=== PATIENT | male | born 1945 | race Caucasian/White ===

== ENCOUNTER 2018-10-30 09:57 | Inpatient (IN) | payer MEDICARE, OTHER ==
[~2018-10-30] VITALS: Ht 185.4 cm; Wt 141.0 kg
[~2018-10-30 09:57] MED LIST: ACET-2119 PO; ALLO300T2 PO; AMOX500T2 PO; COU4T PO; ERGO500014 PO; FURO-150 PO; GABA-532 PO; GEMF600T PO; GEMF600T4 PO; HYDR-4353 PO; HYDR25TA4 PO; LACT1CAP65 PO; LINE600T36 PO; LISI-600 PO; LISI-644 PO; LOSA50TA21 PO; METF-437 PO; METF-951 PO; METO25TA6 PO; MULT1TAB74 PO; OMEG1CAP2 PO; PRAV20TA4 PO; SIMV40TA PO; TEMA15CA5 PO; WARF3TAB56 PO; WARF4TAB69 PO
[2018-10-30 10:21] LABS: BASOPHILS % (AUTO) 0.7 % (0-1); EOSINOPHILS # (AUTO) 0.2 X10'3 (0-0.9); EOSINOPHILS % (AUTO) 3.5 % (0-6); HEMOGLOBIN 13.4 g/dl (14.0-17.9); LYMPHOCYTES # (AUTO) 0.5 X10'3 (1.1-4.8); LYMPHOCYTES % (AUTO) 10.3 % (21-51); MEAN CORPUSCULAR HGB CONC 32.7 % (33.0-36.5); MEAN CORPUSCULAR VOLUME 94.7 FL (78-98); MEAN PLATELET VOLUME 8.2 FL (7.4-10.4); MONOCYTES # (AUTO) 0.2 X10'3 (0-0.9); MONOCYTES % (AUTO) 4.3 % (2-12); NEUTROPHILS # (AUTO) 3.8 X10'3 (1.8-7.7); NEUTROPHILS % (AUTO) 81.2 % (42-75); PLATELET COUNT 159 X10'3 (140-440); RED BLOOD COUNT 4.33 X10'6 (4.70-6.10); RED CELL DISTRIBUTION WIDTH 15.2 % (11.5-14.5); WHITE BLOOD COUNT 4.7 X10'3 (4.5-11.0)
[2018-10-30] MEDS ORDERED: furosemide 10 MG/1 ML 10ml inj IV ONE (10:35)
[2018-10-30 10:36] LABS: ALANINE AMINOTRANSFERASE 26 U/L (12-78); ALBUMIN 3.6 G/DL (3.4-5.0); ALKALINE PHOSPHATASE 109 IU/L (46-116); ANION GAP 10 (8-16); ASPARTATE AMINO TRANSFERASE 25 U/L (10-37); BLOOD UREA NITROGEN 35 MG/DL (7-18); BUN/CREATININE RATIO 21.6 (5.4-32.0); CHLORIDE 109 MMOL/L (99-107); CREATININE 1.62 MG/DL (0.60-1.10); GLUCOSE 125 MG/DL (70-104); POTASSIUM 5.2 MMOL/L (3.5-5.1); SODIUM 143 MMOL/L (135-145); TOTAL CARBON DIOXIDE 23.6 MMOL/L (24-32); TOTAL PROTEIN 7.2 G/DL (6.4-8.2); eGFR 42 ML/MIN
[2018-10-30 10:50] LABS: INR 2.7 INR; PARTIAL THROMBOPLASTIN TIME 40 SECONDS (22-32); PROTHROMBIN TIME 25.6 SECONDS (9.0-12.0)
[2018-10-30] MEDS ORDERED: LISI-604 PO (11:56)
[2018-10-30] MEDS ORDERED: METO50TA16 PO (11:56)
[2018-10-30] MEDS ORDERED: GABA-532 PO (11:56)
[2018-10-30] MEDS ORDERED: ALLO100T PO (11:56)
[2018-10-30] MEDS ORDERED: HYDR12.55 PO (11:56)
[2018-10-30] MEDS ORDERED: ATOR40TA72 PO (11:56)
[2018-10-30] MEDS ORDERED: NIFE30TA95 PO (11:56)
[2018-10-30] MEDS ORDERED: COU5T PO (11:56)
[2018-10-30] MEDS ORDERED: PHYT100T PO (11:57)
[2018-10-30] MEDS ORDERED: magnesium hydroxide 30ml (MOM) UD suspension PO PRN (12:00)
[2018-10-30] MEDS ORDERED: acetaminophen 325mg tablet PO PRN (12:00)
[2018-10-30] MEDS ORDERED: mag hydrox/Alum hydrox/simeth 30ml oral suspension PO PRN (12:00)
[2018-10-30] MEDS ORDERED: magnesium Cl slow-release 64mg tablet PO PRN (12:00)
[2018-10-30] MEDS ORDERED: potassium Cl 20 mEq SR tablet PO PRN ×2 (12:00)
[2018-10-30] MEDS ORDERED: potassium Cl 40MEQ/NS 500ml 500 ML IV PRN ×2 (12:00)
[2018-10-30] MEDS ORDERED: ondansetron/PF 4mg/2ml inj IV PRN (12:00)
[2018-10-30] MEDS ORDERED: magnesium 4gm in 100ml NS 100 ML IV PRN (12:00)
[2018-10-30] MEDS ORDERED: azithromycin/NS 500mg/250ml 250 ML IV ONE (12:05)
[2018-10-30] MEDS ORDERED: insulin Lispro (HumaLOG) vial - multi-dose SQ SCH (13:05)
[2018-10-30] MEDS ORDERED: glucagon, human recombinant 1mg kit SUBCUT PRN (13:05)
[2018-10-30] MEDS ORDERED: dextrose 50%-water 50ml dispensing syringe IV PRN ×2 (13:05)
[2018-10-30] MEDS ORDERED: dextrose ORAL solution 15 GM/59 ML bottle PO PRN ×2 (13:05)
[2018-10-30] MEDS ORDERED: MESSAGE TO PHARMACY PO ONE (13:05)
[2018-10-30] MEDS: gabapentin 300mg capsule PO SCH ×3 (13:53→20:19)
[2018-10-30 14:05] VITALS: BP 165/78
[2018-10-30] MEDS: CefTRIAXone/D5W-Rocephin 1gm 50 ML IV SCH (14:05)
[2018-10-30 15:00] VITALS: BP 166/73
[2018-10-30 15:52] LABS: POTASSIUM 5.4 MMOL/L (3.5-5.1)
[2018-10-30] MEDS ORDERED: sodium polystyrene sulfonate 15gm/60ml oral suspension PO ONE (16:35)
[2018-10-30 19:00] VITALS: BP 172/74
[2018-10-30] MEDS ORDERED: heparin, porcine 5000 units/ml vial SQ SCH (20:00)
[2018-10-30] MEDS: furosemide 40mg/4ml inj IV SCH (20:19)
[2018-10-30] MEDS: allopurinol 100mg tablet PO SCH (20:19)
[2018-10-30] MEDS: insulin glargine (Lantus) pen - multi-dose SQ SCH (21:00)
[2018-10-30] MEDS ORDERED: NIFEdipine XL 30mg tablet PO SCH (21:00)
[2018-10-30] MEDS ORDERED: warfarin 4mg tablet PO ONE (21:00)
[2018-10-30 23:00] VITALS: BP 166/68
[2018-10-31 03:00] VITALS: BP 156/74
[2018-10-31 06:00] VITALS: BP 171/78
[2018-10-31 06:11] LABS: HEMATOCRIT 37.5 % (42.0-52.0); HEMOGLOBIN 12.9 g/dl (14.0-17.9); INR 2.8 INR; MEAN CORPUSCULAR HGB CONC 34.4 % (33.0-36.5); MEAN PLATELET VOLUME 9.2 FL (7.4-10.4); PLATELET COUNT 141 X10'3 (140-440); PROTHROMBIN TIME 27.3 SECONDS (9.0-12.0); RED BLOOD COUNT 4.03 X10'6 (4.70-6.10); RED CELL DISTRIBUTION WIDTH 13.9 % (11.5-14.5); WHITE BLOOD COUNT 4.8 X10'3 (4.5-11.0)
[2018-10-31 06:13] LABS: BASOPHILS % (AUTO) 0.7 % (0-1); EOSINOPHILS # (AUTO) 0.2 X10'3 (0-0.9); EOSINOPHILS % (AUTO) 3.3 % (0-6); LYMPHOCYTES # (AUTO) 0.4 X10'3 (1.1-4.8); LYMPHOCYTES % (AUTO) 7.8 % (21-51); MONOCYTES # (AUTO) 0.3 X10'3 (0-0.9); MONOCYTES % (AUTO) 6.3 % (2-12); NEUTROPHILS # (AUTO) 3.9 X10'3 (1.8-7.7); NEUTROPHILS % (AUTO) 81.9 % (42-75)
[2018-10-31 06:30] LABS: ALANINE AMINOTRANSFERASE 23 U/L (12-78); ALBUMIN 3.4 G/DL (3.4-5.0); ALKALINE PHOSPHATASE 99 IU/L (46-116); ANION GAP 12 (8-16); ASPARTATE AMINO TRANSFERASE 18 U/L (10-37); BILIRUBIN,TOTAL 0.9 MG/DL (0.1-1.0); BLOOD UREA NITROGEN 35 MG/DL (7-18); BUN/CREATININE RATIO 20.8 (5.4-32.0); CALCIUM 7.7 MG/DL (8.5-10.1); CHLORIDE 107 MMOL/L (99-107); CREATININE 1.68 MG/DL (0.60-1.10); GLUCOSE 105 MG/DL (70-104); MAGNESIUM 1.6 MG/DL (1.5-2.4); POTASSIUM 5.1 MMOL/L (3.5-5.1); SODIUM 143 MMOL/L (135-145); TOTAL PROTEIN 6.9 G/DL (6.4-8.2); eGFR 40 ML/MIN
[2018-10-31] MEDS: atorvastatin 20mg tablet PO SCH (07:17)
[2018-10-31] MEDS: furosemide 40mg/4ml inj IV SCH ×2 (07:18→20:40)
[2018-10-31] MEDS: allopurinol 100mg tablet PO SCH ×2 (07:18→20:40)
[2018-10-31] MEDS: metoprolol tartrate 50mg tablet PO SCH (07:18)
[2018-10-31] MEDS: gabapentin 300mg capsule PO SCH ×4 (07:19→20:41)
[2018-10-31] MEDS: CefTRIAXone/D5W-Rocephin 1gm 50 ML IV SCH (07:19)
[2018-10-31] MEDS ORDERED: lisinopril 5mg tablet PO SCH (08:00)
[2018-10-31] MEDS: K and/or MAG REPLACEMENT MC SCH (08:00)
[2018-10-31] MEDS ORDERED: amLODIPine 5mg tablet PO SCH (08:00)
[2018-10-31] MEDS: levoFLOXACIN-Levaquin 750MG/D5 150 ML IV SCH (10:48)
[2018-10-31 11:00] VITALS: BP 162/74
[2018-10-31 15:00] VITALS: BP 164/78
[2018-10-31] MEDS ORDERED: ipratropium/albuterol 3ml nebule NEB PRN (17:40)
[2018-10-31 19:00] VITALS: BP 156/74
[2018-10-31] MEDS: insulin glargine (Lantus) pen - multi-dose SQ SCH (20:41)
[2018-10-31] MEDS ORDERED: warfarin 5mg tablet PO SCH (21:00)
[2018-10-31] MEDS ORDERED: NIFEdipine XL 30mg tablet PO SCH (21:00)
[2018-10-31] MEDS ORDERED: warfarin 3mg tablet PO ONE (21:00)
[2018-10-31 23:00] VITALS: BP 159/71
[2018-11-01 03:00] VITALS: BP 141/64
[2018-11-01 05:56] LABS: BASOPHILS % (AUTO) 0.5 % (0-1); EOSINOPHILS # (AUTO) 0.2 X10'3 (0-0.9); EOSINOPHILS % (AUTO) 4.1 % (0-6); HEMATOCRIT 38.9 % (42.0-52.0); LYMPHOCYTES # (AUTO) 0.4 X10'3 (1.1-4.8); LYMPHOCYTES % (AUTO) 9.9 % (21-51); MEAN CORPUSCULAR HEMOGLOBIN 31.2 PG (27.0-31.0); MEAN CORPUSCULAR HGB CONC 33.3 % (33.0-36.5); MEAN CORPUSCULAR VOLUME 93.7 FL (78-98); MEAN PLATELET VOLUME 9.2 FL (7.4-10.4); MONOCYTES # (AUTO) 0.3 X10'3 (0-0.9); MONOCYTES % (AUTO) 7.8 % (2-12); NEUTROPHILS # (AUTO) 3.2 X10'3 (1.8-7.7); NEUTROPHILS % (AUTO) 77.7 % (42-75); PLATELET COUNT 140 X10'3 (140-440); RED BLOOD COUNT 4.15 X10'6 (4.70-6.10); RED CELL DISTRIBUTION WIDTH 14.7 % (11.5-14.5); WHITE BLOOD COUNT 4.2 X10'3 (4.5-11.0)
[2018-11-01 06:00] VITALS: BP 142/70
[2018-11-01 06:06] LABS: ALANINE AMINOTRANSFERASE 19 U/L (12-78); ALBUMIN 3.2 G/DL (3.4-5.0); ALBUMIN/GLOBULIN RATIO 0.9 (1.1-1.5); ALKALINE PHOSPHATASE 89 IU/L (46-116); ANION GAP 12 (8-16); ASPARTATE AMINO TRANSFERASE 16 U/L (10-37); BILIRUBIN,TOTAL 0.9 MG/DL (0.1-1.0); BLOOD UREA NITROGEN 41 MG/DL (7-18); BUN/CREATININE RATIO 24.1 (5.4-32.0); CALCIUM 7.9 MG/DL (8.5-10.1); CHLORIDE 104 MMOL/L (99-107); GLUCOSE 103 MG/DL (70-104); MAGNESIUM 1.5 MG/DL (1.5-2.4); POTASSIUM 4.9 MMOL/L (3.5-5.1); SODIUM 141 MMOL/L (135-145); TOTAL CARBON DIOXIDE 25.4 MMOL/L (24-32); TOTAL PROTEIN 6.7 G/DL (6.4-8.2); eGFR 40 ML/MIN
[2018-11-01 06:18] LABS: INR 2.9 INR; PROTHROMBIN TIME 27.7 SECONDS (9.0-12.0)
[2018-11-01] MEDS: furosemide 40mg/4ml inj IV SCH (07:11)
[2018-11-01] MEDS: levoFLOXACIN-Levaquin 750MG/D5 150 ML IV SCH (07:12)
[2018-11-01] MEDS: atorvastatin 20mg tablet PO SCH (07:12)
[2018-11-01] MEDS: metoprolol tartrate 50mg tablet PO SCH (07:13)
[2018-11-01] MEDS: gabapentin 300mg capsule PO SCH (07:24)
[2018-11-01] MEDS: allopurinol 100mg tablet PO SCH (07:25)
[2018-11-01] MEDS: K and/or MAG REPLACEMENT MC SCH (08:00)
[2018-11-01] MEDS ORDERED: lisinopril 5mg tablet PO SCH (08:00)
[2018-11-01 11:00] VITALS: BP 136/68
[2018-11-01] MEDS ORDERED: PRO30XLT PO (13:08)
[2018-11-01] MEDS ORDERED: LEVO750T46 PO (13:09)
[2018-11-01] MEDS ORDERED: FURO-150 PO (16:23)
[2018-11-01] MEDS ORDERED: warfarin 1mg tablet PO ONE (21:00)
== END 2018-11-01 16:20 | disposition home health service (06) | DRG 189 ==
LOC: ER 09:57 → ED HOLD 11:57 → MERGE 11:57 → PCU 3S 14:22
PROVIDERS: ADMIT Internal Medicine; ATTEND Family Medicine
DX: J96.01 Acute respiratory failure with hypoxia (principal); J18.9 Pneumonia, unspecified organism; I50.33 Acute on chronic diastolic (congestive) heart failure; I13.0 Hypertensive heart and chronic kidney disease with heart failure and stage 1 through stage 4 chronic kidney disease, or unspecified chronic kidney disease; J98.11 Atelectasis; N18.9 Chronic kidney disease, unspecified; E11.21 Type 2 diabetes mellitus with diabetic nephropathy; M10.9 Gout, unspecified; E11.22 Type 2 diabetes mellitus with diabetic chronic kidney disease; E78.5 Hyperlipidemia, unspecified; E87.5 Hyperkalemia; I25.10 Atherosclerotic heart disease of native coronary artery without angina pectoris; Z89.512 Acquired absence of left leg below knee; Z95.1 Presence of aortocoronary bypass graft; Z88.2 Allergy status to sulfonamides; Z79.899 Other long term (current) drug therapy; Z79.01 Long term (current) use of anticoagulants; Z86.718 Personal history of other venous thrombosis and embolism
CPT/HCPCS: 36415; 71045; 80053; 82948; 83036; 83735; 83880; 84132; 84484; 85025; 85610; 85730; 87040; 87070; 93005; 93306; 94760; 96374; 99285; G0378; J0456; J0696; J1815; J1940; J1956

== ENCOUNTER 2020-07-20 08:40 | Outpatient (CLI) | payer MEDICARE, OTHER ==
[~2020-07-20 08:40] MED LIST changes: -ACET-2119 PO; +ALLO100T PO; +ATOR40TA72 PO; -COU4T PO; -GEMF600T4 PO; +GEMF600T89 PO; +HYDR12.55 PO; -LACT1CAP65 PO; -LINE600T36 PO; +LISI-604 PO; -LOSA50TA21 PO; +LOSA50TA64 PO; -METF-951 PO; +METO50TA16 PO; +MULT-620 PO; -MULT1TAB74 PO; +PHYT100T PO; -PRAV20TA4 PO; +PRO30XLT PO; +WARF-113 PO
[2020-07-20 13:04] LABS: BASOPHILS % (AUTO) 0.5 % (0-1); EOSINOPHILS # (AUTO) 0.2 X10'3 (0-0.9); EOSINOPHILS % (AUTO) 3.7 % (0-6); HEMATOCRIT 38.2 % (42.0-52.0); HEMOGLOBIN 12.5 g/dl (14.0-17.9); LYMPHOCYTES # (AUTO) 0.4 X10'3 (1.1-4.8); LYMPHOCYTES % (AUTO) 7.1 % (21-51); MEAN CORPUSCULAR HEMOGLOBIN 30.5 PG (27.0-31.0); MEAN CORPUSCULAR HGB CONC 32.6 g/dL (33.0-36.5); MEAN CORPUSCULAR VOLUME 93.6 FL (78-98); MEAN PLATELET VOLUME 8.1 FL (7.4-10.4); MONOCYTES # (AUTO) 0.3 X10'3 (0-0.9); MONOCYTES % (AUTO) 5.4 % (2-12); NEUTROPHILS # (AUTO) 4.7 X10'3 (1.8-7.7); NEUTROPHILS % (AUTO) 83.3 % (42-75); PLATELET COUNT 177 X10'3 (140-440); RED BLOOD COUNT 4.08 X10'6 (4.70-6.10); RED CELL DISTRIBUTION WIDTH 16.2 % (11.5-14.5); WHITE BLOOD COUNT 5.6 X10'3 (4.5-11.0)
[2020-07-20 13:12] LABS: ALANINE AMINOTRANSFERASE 15 U/L (12-78); ALBUMIN 3.1 G/DL (3.4-5.0); ALBUMIN/GLOBULIN RATIO 0.8 (1.1-1.5); ALKALINE PHOSPHATASE 73 IU/L (46-116); ANION GAP 8 (8-16); ASPARTATE AMINO TRANSFERASE 15 U/L (10-37); BILIRUBIN,TOTAL 0.7 MG/DL (0.1-1.0); BLOOD UREA NITROGEN 60 MG/DL (7-18); BUN/CREATININE RATIO 31.9 (5.4-32.0); C-REACTIVE PROTEIN 2.99 MG/DL (0.0-0.5); CALCIUM 7.6 MG/DL (8.5-10.1); CHLORIDE 106 MMOL/L (99-107); CREATININE 1.88 MG/DL (0.60-1.10); GLUCOSE 115 MG/DL (70-104); POTASSIUM 5.3 MMOL/L (3.5-5.1); SODIUM 140 MMOL/L (135-145); eGFR 35 ML/MIN
== END 2020-07-20 12:25 | disposition home or self-care (01) ==
LOC: EDSTATUS 08:40 → WOUND CARE 08:40
PROVIDERS: ATTEND Nurse Practitioner
DX: Q82.0 Hereditary lymphedema (principal); I48.91 Unspecified atrial fibrillation; E78.5 Hyperlipidemia, unspecified; M10.9 Gout, unspecified; M19.90 Unspecified osteoarthritis, unspecified site; I25.10 Atherosclerotic heart disease of native coronary artery without angina pectoris; E11.21 Type 2 diabetes mellitus with diabetic nephropathy; E11.22 Type 2 diabetes mellitus with diabetic chronic kidney disease; I13.0 Hypertensive heart and chronic kidney disease with heart failure and stage 1 through stage 4 chronic kidney disease, or unspecified chronic kidney disease; I50.33 Acute on chronic diastolic (congestive) heart failure; N18.9 Chronic kidney disease, unspecified; F03.90 Unspecified dementia, unspecified severity, without behavioral disturbance, psychotic disturbance, mood disturbance, and anxiety; Z95.1 Presence of aortocoronary bypass graft; Z89.512 Acquired absence of left leg below knee; Z86.718 Personal history of other venous thrombosis and embolism; Z79.899 Other long term (current) drug therapy; Z79.01 Long term (current) use of anticoagulants
CPT/HCPCS: 29581; 36415; 80053; 83036; 85025; 85651; 86140

== ENCOUNTER 2020-07-28 08:15 | Outpatient (CLI) | payer MEDICARE, OTHER | END 2020-07-28 09:08 | disposition home or self-care (01) | LOC: WOUND CARE 08:15 → EDSTATUS 08:20 → WOUND CARE 09:08 | PROVIDERS: ATTEND Nurse Practitioner | DX: E11.621 Type 2 diabetes mellitus with foot ulcer (principal); L97.511 Non-pressure chronic ulcer of other part of right foot limited to breakdown of skin; E11.622 Type 2 diabetes mellitus with other skin ulcer; L97.811 Non-pressure chronic ulcer of other part of right lower leg limited to breakdown of skin; S81.811A Laceration without foreign body, right lower leg, initial encounter; I25.10 Atherosclerotic heart disease of native coronary artery without angina pectoris; E11.21 Type 2 diabetes mellitus with diabetic nephropathy; E11.22 Type 2 diabetes mellitus with diabetic chronic kidney disease; I13.0 Hypertensive heart and chronic kidney disease with heart failure and stage 1 through stage 4 chronic kidney disease, or unspecified chronic kidney disease; I50.33 Acute on chronic diastolic (congestive) heart failure; N18.3 Chronic kidney disease, stage 3 (moderate); Q32.0 Congenital tracheomalacia; I48.91 Unspecified atrial fibrillation; E78.5 Hyperlipidemia, unspecified; M10.9 Gout, unspecified; M19.90 Unspecified osteoarthritis, unspecified site; F03.90 Unspecified dementia, unspecified severity, without behavioral disturbance, psychotic disturbance, mood disturbance, and anxiety; Z95.1 Presence of aortocoronary bypass graft; Z89.512 Acquired absence of left leg below knee; Z86.718 Personal history of other venous thrombosis and embolism; Z79.899 Other long term (current) drug therapy; Z79.01 Long term (current) use of anticoagulants; X58.XXXA Exposure to other specified factors, initial encounter; Y93.89 Activity, other specified; Y92.89 Other specified places as the place of occurrence of the external cause; Y99.8 Other external cause status | CPT/HCPCS: 36416; 82948; 97597 ==

== ENCOUNTER 2020-08-03 08:05 | Day surgery (SDC) | payer MEDICARE, OTHER | END 2020-08-03 09:45 | disposition home or self-care (01) | LOC: WOUND CARE 08:05 | PROVIDERS: ATTEND Nurse Practitioner Family | DX: S91.111D Laceration without foreign body of right great toe without damage to nail, subsequent encounter (principal); S81.801D Unspecified open wound, right lower leg, subsequent encounter; Q82.0 Hereditary lymphedema; I25.10 Atherosclerotic heart disease of native coronary artery without angina pectoris; E11.21 Type 2 diabetes mellitus with diabetic nephropathy; E11.22 Type 2 diabetes mellitus with diabetic chronic kidney disease; I13.0 Hypertensive heart and chronic kidney disease with heart failure and stage 1 through stage 4 chronic kidney disease, or unspecified chronic kidney disease; N18.3 Chronic kidney disease, stage 3 (moderate); I50.33 Acute on chronic diastolic (congestive) heart failure; Q32.0 Congenital tracheomalacia; I48.91 Unspecified atrial fibrillation; E78.5 Hyperlipidemia, unspecified; M10.9 Gout, unspecified; M19.90 Unspecified osteoarthritis, unspecified site; F03.90 Unspecified dementia, unspecified severity, without behavioral disturbance, psychotic disturbance, mood disturbance, and anxiety; Z95.1 Presence of aortocoronary bypass graft; Z89.512 Acquired absence of left leg below knee; Z86.718 Personal history of other venous thrombosis and embolism; Z79.899 Other long term (current) drug therapy; Z79.01 Long term (current) use of anticoagulants; X58.XXXD Exposure to other specified factors, subsequent encounter | CPT/HCPCS: 36416; 82948; 97597; 97598 ==

== ENCOUNTER 2020-08-10 08:05 | Day surgery (SDC) | payer MEDICARE, OTHER ==
[2020-08-10] MEDS ORDERED: LIDOcaine 2% 5ml jelly ONE (08:34)
== END 2020-08-10 09:17 | disposition home or self-care (01) ==
LOC: WOUND CARE 08:05
PROVIDERS: ATTEND Nurse Practitioner Family
DX: E11.622 Type 2 diabetes mellitus with other skin ulcer (principal); L97.811 Non-pressure chronic ulcer of other part of right lower leg limited to breakdown of skin; S91.111D Laceration without foreign body of right great toe without damage to nail, subsequent encounter; E11.621 Type 2 diabetes mellitus with foot ulcer; L97.511 Non-pressure chronic ulcer of other part of right foot limited to breakdown of skin; I25.10 Atherosclerotic heart disease of native coronary artery without angina pectoris; E11.21 Type 2 diabetes mellitus with diabetic nephropathy; E11.22 Type 2 diabetes mellitus with diabetic chronic kidney disease; I13.0 Hypertensive heart and chronic kidney disease with heart failure and stage 1 through stage 4 chronic kidney disease, or unspecified chronic kidney disease; I50.33 Acute on chronic diastolic (congestive) heart failure; N18.3 Chronic kidney disease, stage 3 (moderate); Q32.0 Congenital tracheomalacia; Q82.0 Hereditary lymphedema; I48.91 Unspecified atrial fibrillation; E78.5 Hyperlipidemia, unspecified; M10.9 Gout, unspecified; M19.90 Unspecified osteoarthritis, unspecified site; F03.90 Unspecified dementia, unspecified severity, without behavioral disturbance, psychotic disturbance, mood disturbance, and anxiety; Z95.1 Presence of aortocoronary bypass graft; Z89.512 Acquired absence of left leg below knee; Z86.718 Personal history of other venous thrombosis and embolism; Z79.899 Other long term (current) drug therapy; Z79.01 Long term (current) use of anticoagulants; X58.XXXD Exposure to other specified factors, subsequent encounter
CPT/HCPCS: 36416; 82948; 97597

== ENCOUNTER 2020-08-17 08:00 | Outpatient (CLI) | payer MEDICARE, OTHER | END 2020-08-17 09:55 | disposition home or self-care (01) | LOC: EDSTATUS 08:00 → WOUND CARE 08:00 | PROVIDERS: ATTEND Nurse Practitioner Family | DX: E11.622 Type 2 diabetes mellitus with other skin ulcer (principal); L97.811 Non-pressure chronic ulcer of other part of right lower leg limited to breakdown of skin; I25.10 Atherosclerotic heart disease of native coronary artery without angina pectoris; E11.21 Type 2 diabetes mellitus with diabetic nephropathy; E11.22 Type 2 diabetes mellitus with diabetic chronic kidney disease; I13.0 Hypertensive heart and chronic kidney disease with heart failure and stage 1 through stage 4 chronic kidney disease, or unspecified chronic kidney disease; I50.33 Acute on chronic diastolic (congestive) heart failure; N18.3 Chronic kidney disease, stage 3 (moderate); Q82.0 Hereditary lymphedema; Q32.0 Congenital tracheomalacia; I48.91 Unspecified atrial fibrillation; E78.5 Hyperlipidemia, unspecified; M10.9 Gout, unspecified; M19.90 Unspecified osteoarthritis, unspecified site; F03.90 Unspecified dementia, unspecified severity, without behavioral disturbance, psychotic disturbance, mood disturbance, and anxiety; Z95.1 Presence of aortocoronary bypass graft; Z89.512 Acquired absence of left leg below knee; Z86.718 Personal history of other venous thrombosis and embolism; Z79.899 Other long term (current) drug therapy; Z79.01 Long term (current) use of anticoagulants | CPT/HCPCS: 29581; 36416; 82948 ==

== ENCOUNTER → 2020-08-24 | Outpatient (CLI) | payer MEDICARE, OTHER | END | disposition home or self-care (01) | LOC: WOUND CARE 07:50 → EDSTATUS 08:00 | PROVIDERS: ATTEND Nurse Practitioner Family | DX: E11.622 Type 2 diabetes mellitus with other skin ulcer (principal); I83.018 Varicose veins of right lower extremity with ulcer other part of lower leg; L97.811 Non-pressure chronic ulcer of other part of right lower leg limited to breakdown of skin; S90.411A Abrasion, right great toe, initial encounter; I25.10 Atherosclerotic heart disease of native coronary artery without angina pectoris; E11.21 Type 2 diabetes mellitus with diabetic nephropathy; E11.22 Type 2 diabetes mellitus with diabetic chronic kidney disease; I13.0 Hypertensive heart and chronic kidney disease with heart failure and stage 1 through stage 4 chronic kidney disease, or unspecified chronic kidney disease; I50.33 Acute on chronic diastolic (congestive) heart failure; N18.30 Chronic kidney disease, stage 3 unspecified; Q82.0 Hereditary lymphedema; Q32.0 Congenital tracheomalacia; I48.91 Unspecified atrial fibrillation; E78.5 Hyperlipidemia, unspecified; M10.9 Gout, unspecified; M19.90 Unspecified osteoarthritis, unspecified site; F03.90 Unspecified dementia, unspecified severity, without behavioral disturbance, psychotic disturbance, mood disturbance, and anxiety; Z95.1 Presence of aortocoronary bypass graft; Z89.512 Acquired absence of left leg below knee; Z86.718 Personal history of other venous thrombosis and embolism; Z79.899 Other long term (current) drug therapy; Z79.01 Long term (current) use of anticoagulants; X58.XXXA Exposure to other specified factors, initial encounter; Y93.89 Activity, other specified; Y99.8 Other external cause status; Y92.89 Other specified places as the place of occurrence of the external cause | CPT/HCPCS: 29581; 36416; 82948 ==

== ENCOUNTER 2020-08-31 08:20 | Day surgery (SDC) | payer MEDICARE, OTHER ==
[2020-08-31] MEDS ORDERED: LIDOcaine 2% 5ml jelly ONE (08:46)
== END 2020-08-31 09:25 | disposition home or self-care (01) ==
LOC: WOUND CARE 08:20
PROVIDERS: ATTEND Nurse Practitioner Family
DX: E11.622 Type 2 diabetes mellitus with other skin ulcer (principal); I83.018 Varicose veins of right lower extremity with ulcer other part of lower leg; L97.811 Non-pressure chronic ulcer of other part of right lower leg limited to breakdown of skin; S90.411D Abrasion, right great toe, subsequent encounter; I25.10 Atherosclerotic heart disease of native coronary artery without angina pectoris; E11.21 Type 2 diabetes mellitus with diabetic nephropathy; E11.22 Type 2 diabetes mellitus with diabetic chronic kidney disease; I13.0 Hypertensive heart and chronic kidney disease with heart failure and stage 1 through stage 4 chronic kidney disease, or unspecified chronic kidney disease; I50.33 Acute on chronic diastolic (congestive) heart failure; N18.30 Chronic kidney disease, stage 3 unspecified; Q82.0 Hereditary lymphedema; Q32.0 Congenital tracheomalacia; I48.91 Unspecified atrial fibrillation; E78.5 Hyperlipidemia, unspecified; M10.9 Gout, unspecified; M19.90 Unspecified osteoarthritis, unspecified site; F03.90 Unspecified dementia, unspecified severity, without behavioral disturbance, psychotic disturbance, mood disturbance, and anxiety; Z95.1 Presence of aortocoronary bypass graft; Z89.512 Acquired absence of left leg below knee; Z86.718 Personal history of other venous thrombosis and embolism; Z79.899 Other long term (current) drug therapy; Z79.01 Long term (current) use of anticoagulants; X58.XXXD Exposure to other specified factors, subsequent encounter
CPT/HCPCS: 36416; 82948; 97597

== ENCOUNTER 2020-09-01 10:00 | Day surgery (SDC) | payer MEDICARE, OTHER | END 2020-09-01 10:22 | disposition home or self-care (01) | LOC: WOUND CARE 10:00 | PROVIDERS: ATTEND Nurse Practitioner | DX: Q82.0 Hereditary lymphedema (principal); Q32.0 Congenital tracheomalacia; I25.10 Atherosclerotic heart disease of native coronary artery without angina pectoris; E11.21 Type 2 diabetes mellitus with diabetic nephropathy; E11.22 Type 2 diabetes mellitus with diabetic chronic kidney disease; I13.0 Hypertensive heart and chronic kidney disease with heart failure and stage 1 through stage 4 chronic kidney disease, or unspecified chronic kidney disease; N18.30 Chronic kidney disease, stage 3 unspecified; I50.33 Acute on chronic diastolic (congestive) heart failure; I48.91 Unspecified atrial fibrillation; E78.5 Hyperlipidemia, unspecified; M10.9 Gout, unspecified; M19.90 Unspecified osteoarthritis, unspecified site; F03.90 Unspecified dementia, unspecified severity, without behavioral disturbance, psychotic disturbance, mood disturbance, and anxiety; Z95.1 Presence of aortocoronary bypass graft; Z89.512 Acquired absence of left leg below knee; Z86.718 Personal history of other venous thrombosis and embolism; Z79.899 Other long term (current) drug therapy; Z79.01 Long term (current) use of anticoagulants | CPT/HCPCS: 36416; 82948; G0463 ==

== ENCOUNTER 2020-09-07 07:52 | Outpatient (CLI) | payer MEDICARE, OTHER ==
[2020-09-07] MEDS ORDERED: nystatin/triamcinolone cream 15gm TP ONE (08:58)
== END 2020-09-07 09:10 | disposition home or self-care (01) ==
LOC: WOUND CARE 07:52 → EDSTATUS 08:00 → WOUND CARE 09:10
PROVIDERS: ATTEND Nurse Practitioner Family
DX: E11.622 Type 2 diabetes mellitus with other skin ulcer (principal); L97.811 Non-pressure chronic ulcer of other part of right lower leg limited to breakdown of skin; S90.411D Abrasion, right great toe, subsequent encounter; E11.21 Type 2 diabetes mellitus with diabetic nephropathy; E11.22 Type 2 diabetes mellitus with diabetic chronic kidney disease; I13.0 Hypertensive heart and chronic kidney disease with heart failure and stage 1 through stage 4 chronic kidney disease, or unspecified chronic kidney disease; I50.33 Acute on chronic diastolic (congestive) heart failure; N18.30 Chronic kidney disease, stage 3 unspecified; I25.10 Atherosclerotic heart disease of native coronary artery without angina pectoris; Q82.0 Hereditary lymphedema; Q32.0 Congenital tracheomalacia; I48.91 Unspecified atrial fibrillation; E78.5 Hyperlipidemia, unspecified; M10.9 Gout, unspecified; M19.90 Unspecified osteoarthritis, unspecified site; F03.90 Unspecified dementia, unspecified severity, without behavioral disturbance, psychotic disturbance, mood disturbance, and anxiety; Z95.1 Presence of aortocoronary bypass graft; Z89.512 Acquired absence of left leg below knee; Z86.718 Personal history of other venous thrombosis and embolism; Z79.899 Other long term (current) drug therapy; Z79.01 Long term (current) use of anticoagulants; X58.XXXD Exposure to other specified factors, subsequent encounter
CPT/HCPCS: 36416; 82948; 87070; 87075; 87102; 97597; J7999; 87077; 87186

== ENCOUNTER 2020-09-11 07:44 | Outpatient (CLI) | payer MEDICARE, OTHER | END 2020-09-11 23:59 | disposition home or self-care (01) | LOC: WOUND CARE 07:44 → EDSTATUS 08:00 → WOUND CARE 23:59 | PROVIDERS: ATTEND Nurse Practitioner | DX: E11.622 Type 2 diabetes mellitus with other skin ulcer (principal); L97.811 Non-pressure chronic ulcer of other part of right lower leg limited to breakdown of skin; E11.21 Type 2 diabetes mellitus with diabetic nephropathy; E11.22 Type 2 diabetes mellitus with diabetic chronic kidney disease; I13.0 Hypertensive heart and chronic kidney disease with heart failure and stage 1 through stage 4 chronic kidney disease, or unspecified chronic kidney disease; N18.30 Chronic kidney disease, stage 3 unspecified; I50.33 Acute on chronic diastolic (congestive) heart failure; I25.10 Atherosclerotic heart disease of native coronary artery without angina pectoris; Q82.0 Hereditary lymphedema; I48.91 Unspecified atrial fibrillation; E78.5 Hyperlipidemia, unspecified; M10.9 Gout, unspecified; M19.90 Unspecified osteoarthritis, unspecified site; F03.90 Unspecified dementia, unspecified severity, without behavioral disturbance, psychotic disturbance, mood disturbance, and anxiety; Z95.1 Presence of aortocoronary bypass graft; Z89.512 Acquired absence of left leg below knee; Z86.718 Personal history of other venous thrombosis and embolism; Z79.899 Other long term (current) drug therapy; Z79.01 Long term (current) use of anticoagulants | CPT/HCPCS: 36416; 82948; 97597; 97598 ==

== ENCOUNTER 2020-09-15 08:09 | Outpatient (CLI) | payer MEDICARE, OTHER ==
[2020-09-15] MEDS ORDERED: LIDOcaine 2% 5ml jelly ONE (08:22)
== END 2020-09-15 23:59 | disposition home or self-care (01) ==
LOC: WOUND CARE 08:09
PROVIDERS: ATTEND Nurse Practitioner
DX: E11.622 Type 2 diabetes mellitus with other skin ulcer (principal); L97.811 Non-pressure chronic ulcer of other part of right lower leg limited to breakdown of skin; I83.012 Varicose veins of right lower extremity with ulcer of calf; L97.212 Non-pressure chronic ulcer of right calf with fat layer exposed; E11.21 Type 2 diabetes mellitus with diabetic nephropathy; E11.22 Type 2 diabetes mellitus with diabetic chronic kidney disease; I13.0 Hypertensive heart and chronic kidney disease with heart failure and stage 1 through stage 4 chronic kidney disease, or unspecified chronic kidney disease; N18.30 Chronic kidney disease, stage 3 unspecified; I50.33 Acute on chronic diastolic (congestive) heart failure; I25.10 Atherosclerotic heart disease of native coronary artery without angina pectoris; Q82.0 Hereditary lymphedema; I48.91 Unspecified atrial fibrillation; E78.5 Hyperlipidemia, unspecified; M10.9 Gout, unspecified; M19.90 Unspecified osteoarthritis, unspecified site; F03.90 Unspecified dementia, unspecified severity, without behavioral disturbance, psychotic disturbance, mood disturbance, and anxiety; Z95.1 Presence of aortocoronary bypass graft; Z89.512 Acquired absence of left leg below knee; Z86.718 Personal history of other venous thrombosis and embolism; Z79.899 Other long term (current) drug therapy; Z79.01 Long term (current) use of anticoagulants
CPT/HCPCS: 36416; 82948; 97597; 97598

== ENCOUNTER → 2020-09-18 | Outpatient (CLI) | payer MEDICARE, OTHER ==
[~2020-09-18] MED LIST changes: +ATOR40TA PO; +CEPH-572 PO; +ERGO500041 PO; +IRBE150T51 PO; +METO50TA17 PO; +NIFE90TA2 PO; +PRAV20TA4 PO; +WARF-55 PO; +WARF-65 PO
== END | disposition home or self-care (01) ==
LOC: WOUND CARE 07:56 → EDSTATUS 08:00
PROVIDERS: ATTEND Nurse Practitioner
DX: E11.622 Type 2 diabetes mellitus with other skin ulcer (principal); I83.018 Varicose veins of right lower extremity with ulcer other part of lower leg; L97.811 Non-pressure chronic ulcer of other part of right lower leg limited to breakdown of skin; I83.012 Varicose veins of right lower extremity with ulcer of calf; L97.212 Non-pressure chronic ulcer of right calf with fat layer exposed; I48.91 Unspecified atrial fibrillation; Q82.0 Hereditary lymphedema; Z79.01 Long term (current) use of anticoagulants; E11.21 Type 2 diabetes mellitus with diabetic nephropathy; E11.22 Type 2 diabetes mellitus with diabetic chronic kidney disease; I13.0 Hypertensive heart and chronic kidney disease with heart failure and stage 1 through stage 4 chronic kidney disease, or unspecified chronic kidney disease; N18.30 Chronic kidney disease, stage 3 unspecified; I50.33 Acute on chronic diastolic (congestive) heart failure; E66.01 Morbid (severe) obesity due to excess calories; I25.10 Atherosclerotic heart disease of native coronary artery without angina pectoris; E78.5 Hyperlipidemia, unspecified; M10.9 Gout, unspecified; M19.90 Unspecified osteoarthritis, unspecified site; F03.90 Unspecified dementia, unspecified severity, without behavioral disturbance, psychotic disturbance, mood disturbance, and anxiety; Z95.1 Presence of aortocoronary bypass graft; Z89.512 Acquired absence of left leg below knee; Z86.718 Personal history of other venous thrombosis and embolism; Z79.899 Other long term (current) drug therapy; Z68.41 Body mass index [BMI] 40.0-44.9, adult
CPT/HCPCS: 29445; 29581; 36416; 82948

== ENCOUNTER 2020-09-24 10:56 | Outpatient (CLI) | payer MEDICARE, OTHER ==
[~2020-09-24 10:56] MED LIST changes: -ATOR40TA PO; -CEPH-572 PO; -ERGO500041 PO; -IRBE150T51 PO; -METO50TA17 PO; -NIFE90TA2 PO; -PRAV20TA4 PO; -WARF-55 PO; -WARF-65 PO
== END 2020-09-24 23:59 | disposition home or self-care (01) ==
LOC: WOUND CARE 10:56
PROVIDERS: ATTEND Nurse Practitioner
DX: E11.622 Type 2 diabetes mellitus with other skin ulcer (principal); I83.018 Varicose veins of right lower extremity with ulcer other part of lower leg; L97.811 Non-pressure chronic ulcer of other part of right lower leg limited to breakdown of skin; I83.012 Varicose veins of right lower extremity with ulcer of calf; L97.212 Non-pressure chronic ulcer of right calf with fat layer exposed; E11.21 Type 2 diabetes mellitus with diabetic nephropathy; E11.22 Type 2 diabetes mellitus with diabetic chronic kidney disease; I13.0 Hypertensive heart and chronic kidney disease with heart failure and stage 1 through stage 4 chronic kidney disease, or unspecified chronic kidney disease; N18.30 Chronic kidney disease, stage 3 unspecified; I50.33 Acute on chronic diastolic (congestive) heart failure; E66.01 Morbid (severe) obesity due to excess calories; I25.10 Atherosclerotic heart disease of native coronary artery without angina pectoris; Q82.0 Hereditary lymphedema; I48.91 Unspecified atrial fibrillation; E78.5 Hyperlipidemia, unspecified; M10.9 Gout, unspecified; M19.90 Unspecified osteoarthritis, unspecified site; F03.90 Unspecified dementia, unspecified severity, without behavioral disturbance, psychotic disturbance, mood disturbance, and anxiety; Z95.1 Presence of aortocoronary bypass graft; Z89.512 Acquired absence of left leg below knee; Z86.718 Personal history of other venous thrombosis and embolism; Z79.899 Other long term (current) drug therapy; Z79.01 Long term (current) use of anticoagulants; Z68.41 Body mass index [BMI] 40.0-44.9, adult
CPT/HCPCS: 29581; 93922; 93926; 93970

== ENCOUNTER 2020-09-29 07:58 | Outpatient (CLI) | payer MEDICARE, OTHER ==
[2020-09-29] MEDS ORDERED: gentamicin 0.1% topical ointment 15gm TP ONE (09:20)
== END 2020-09-29 23:59 | disposition home or self-care (01) ==
LOC: WOUND CARE 07:58 → EDSTATUS 08:00 → WOUND CARE 23:59
PROVIDERS: ATTEND Nurse Practitioner
DX: E11.622 Type 2 diabetes mellitus with other skin ulcer (principal); I83.018 Varicose veins of right lower extremity with ulcer other part of lower leg; L97.812 Non-pressure chronic ulcer of other part of right lower leg with fat layer exposed; I83.012 Varicose veins of right lower extremity with ulcer of calf; L97.212 Non-pressure chronic ulcer of right calf with fat layer exposed; E11.621 Type 2 diabetes mellitus with foot ulcer; L97.512 Non-pressure chronic ulcer of other part of right foot with fat layer exposed; E11.21 Type 2 diabetes mellitus with diabetic nephropathy; E11.22 Type 2 diabetes mellitus with diabetic chronic kidney disease; I13.0 Hypertensive heart and chronic kidney disease with heart failure and stage 1 through stage 4 chronic kidney disease, or unspecified chronic kidney disease; N18.30 Chronic kidney disease, stage 3 unspecified; I50.33 Acute on chronic diastolic (congestive) heart failure; E66.01 Morbid (severe) obesity due to excess calories; I25.10 Atherosclerotic heart disease of native coronary artery without angina pectoris; Q82.0 Hereditary lymphedema; I48.91 Unspecified atrial fibrillation; E78.5 Hyperlipidemia, unspecified; M10.9 Gout, unspecified; M19.90 Unspecified osteoarthritis, unspecified site; F03.90 Unspecified dementia, unspecified severity, without behavioral disturbance, psychotic disturbance, mood disturbance, and anxiety; Z95.1 Presence of aortocoronary bypass graft; Z89.512 Acquired absence of left leg below knee; Z86.718 Personal history of other venous thrombosis and embolism; Z79.899 Other long term (current) drug therapy; Z79.01 Long term (current) use of anticoagulants; Z68.41 Body mass index [BMI] 40.0-44.9, adult
CPT/HCPCS: 36416; 82948; G0463

== ENCOUNTER 2020-10-02 08:15 | Outpatient (CLI) | payer MEDICARE, OTHER ==
[2020-10-02 09:07] LABS: BASOPHILS # (AUTO) 0.1 X10'3 (0-0.2); BASOPHILS % (AUTO) 0.7 % (0-1); EOSINOPHILS # (AUTO) 0.2 X10'3 (0-0.9); EOSINOPHILS % (AUTO) 3.1 % (0-6); HEMATOCRIT 33.7 % (42.0-52.0); HEMOGLOBIN 11.1 g/dl (14.0-17.9); LYMPHOCYTES # (AUTO) 0.4 X10'3 (1.1-4.8); LYMPHOCYTES % (AUTO) 5.6 % (21-51); MEAN CORPUSCULAR HEMOGLOBIN 31.2 PG (27.0-31.0); MEAN CORPUSCULAR VOLUME 94.7 FL (78-98); MONOCYTES # (AUTO) 0.4 X10'3 (0-0.9); MONOCYTES % (AUTO) 5.4 % (2-12); NEUTROPHILS # (AUTO) 5.9 X10'3 (1.8-7.7); NEUTROPHILS % (AUTO) 85.2 % (42-75); PLATELET COUNT 182 X10'3 (140-440); RED BLOOD COUNT 3.56 X10'6 (4.70-6.10); RED CELL DISTRIBUTION WIDTH 15.9 % (11.5-14.5)
[2020-10-02] MEDS ORDERED: LIDOcaine 2% 5ml jelly ONE (09:07)
[2020-10-02 09:29] LABS: ALANINE AMINOTRANSFERASE 12 U/L (12-78); ALBUMIN/GLOBULIN RATIO 0.7 (1.1-1.5); ALKALINE PHOSPHATASE 85 IU/L (46-116); ANION GAP 12 (8-16); ASPARTATE AMINO TRANSFERASE 11 U/L (10-37); BILIRUBIN,TOTAL 0.5 MG/DL (0.1-1.0); BLOOD UREA NITROGEN 53 MG/DL (7-18); BUN/CREATININE RATIO 28.3 (5.4-32.0); CALCIUM 8.2 MG/DL (8.5-10.1); CHLORIDE 110 MMOL/L (99-107); CREATININE 1.87 MG/DL (0.60-1.10); GLUCOSE 107 MG/DL (70-104); POTASSIUM 4.4 MMOL/L (3.5-5.1); SODIUM 144 MMOL/L (135-145); TOTAL CARBON DIOXIDE 22.2 MMOL/L (24-32); TOTAL PROTEIN 7.2 G/DL (6.4-8.2); eGFR 35 ML/MIN
[2020-10-02] MEDS ORDERED: gentamicin 0.1% topical ointment 15gm TP ONE (10:05)
== END 2020-10-02 23:59 | disposition home or self-care (01) ==
LOC: WOUND CARE 08:15
PROVIDERS: ATTEND Nurse Practitioner
DX: E11.622 Type 2 diabetes mellitus with other skin ulcer (principal); I83.018 Varicose veins of right lower extremity with ulcer other part of lower leg; L97.812 Non-pressure chronic ulcer of other part of right lower leg with fat layer exposed; I83.012 Varicose veins of right lower extremity with ulcer of calf; L97.212 Non-pressure chronic ulcer of right calf with fat layer exposed; E11.621 Type 2 diabetes mellitus with foot ulcer; I83.015 Varicose veins of right lower extremity with ulcer other part of foot; L97.512 Non-pressure chronic ulcer of other part of right foot with fat layer exposed; E11.21 Type 2 diabetes mellitus with diabetic nephropathy; E11.22 Type 2 diabetes mellitus with diabetic chronic kidney disease; I13.0 Hypertensive heart and chronic kidney disease with heart failure and stage 1 through stage 4 chronic kidney disease, or unspecified chronic kidney disease; N18.30 Chronic kidney disease, stage 3 unspecified; I50.33 Acute on chronic diastolic (congestive) heart failure; E11.51 Type 2 diabetes mellitus with diabetic peripheral angiopathy without gangrene; E11.40 Type 2 diabetes mellitus with diabetic neuropathy, unspecified; G93.41 Metabolic encephalopathy; E66.01 Morbid (severe) obesity due to excess calories; E87.5 Hyperkalemia; I25.10 Atherosclerotic heart disease of native coronary artery without angina pectoris; Q82.0 Hereditary lymphedema; I48.91 Unspecified atrial fibrillation; E78.5 Hyperlipidemia, unspecified; M10.9 Gout, unspecified; M19.90 Unspecified osteoarthritis, unspecified site; F03.90 Unspecified dementia, unspecified severity, without behavioral disturbance, psychotic disturbance, mood disturbance, and anxiety; Z95.1 Presence of aortocoronary bypass graft; Z89.512 Acquired absence of left leg below knee; Z86.718 Personal history of other venous thrombosis and embolism; Z79.899 Other long term (current) drug therapy; Z79.01 Long term (current) use of anticoagulants; Z68.42 Body mass index [BMI] 45.0-49.9, adult
CPT/HCPCS: 29581; 36415; 80053; 85025

== ENCOUNTER 2020-10-07 07:49 | Outpatient (CLI) | payer MEDICARE, OTHER ==
[2020-10-07] MEDS ORDERED: LIDOcaine 2% 5ml jelly ONE (08:42)
[2020-10-07] MEDS ORDERED: gentamicin 0.1% topical ointment 15gm TP ONE (09:13)
== END 2020-10-07 23:59 | disposition home or self-care (01) ==
LOC: WOUND CARE 07:49
PROVIDERS: ATTEND Nurse Practitioner
DX: E11.621 Type 2 diabetes mellitus with foot ulcer (principal); L97.512 Non-pressure chronic ulcer of other part of right foot with fat layer exposed; I83.015 Varicose veins of right lower extremity with ulcer other part of foot; E11.622 Type 2 diabetes mellitus with other skin ulcer; I83.012 Varicose veins of right lower extremity with ulcer of calf; L97.212 Non-pressure chronic ulcer of right calf with fat layer exposed; I83.018 Varicose veins of right lower extremity with ulcer other part of lower leg; L97.811 Non-pressure chronic ulcer of other part of right lower leg limited to breakdown of skin; E11.21 Type 2 diabetes mellitus with diabetic nephropathy; E11.22 Type 2 diabetes mellitus with diabetic chronic kidney disease; I13.0 Hypertensive heart and chronic kidney disease with heart failure and stage 1 through stage 4 chronic kidney disease, or unspecified chronic kidney disease; N18.30 Chronic kidney disease, stage 3 unspecified; I50.33 Acute on chronic diastolic (congestive) heart failure; E66.01 Morbid (severe) obesity due to excess calories; I25.10 Atherosclerotic heart disease of native coronary artery without angina pectoris; Q82.0 Hereditary lymphedema; Q32.0 Congenital tracheomalacia; I48.91 Unspecified atrial fibrillation; E78.5 Hyperlipidemia, unspecified; M10.9 Gout, unspecified; M19.90 Unspecified osteoarthritis, unspecified site; F03.90 Unspecified dementia, unspecified severity, without behavioral disturbance, psychotic disturbance, mood disturbance, and anxiety; Z95.1 Presence of aortocoronary bypass graft; Z89.512 Acquired absence of left leg below knee; Z86.718 Personal history of other venous thrombosis and embolism; Z79.899 Other long term (current) drug therapy; Z79.01 Long term (current) use of anticoagulants; Z68.41 Body mass index [BMI] 40.0-44.9, adult
CPT/HCPCS: 36416; 82948; 97597

== ENCOUNTER 2020-10-11 14:07 | Inpatient (IN) | payer MEDICARE, OTHER ==
[~2020-10-11] VITALS: Ht 185.4 cm; Wt 155.0 kg
[2020-10-11 15:16] LABS: CLARITY,URINE CLOUDY (Clear); COLOR,URINE YELLOW (Yellow); GLUCOSE, URINE NEGATIVE (Neg); KETONES,URINE NEGATIVE (Neg); LEUKOCYTE ESTERASE ,URINE SMALL (Neg); NITRITES, URINE NEGATIVE (Neg); OCCULT BLOOD,URINE LARGE (Neg); PH,URINE 5.5 (4.8-8.0); PROTEIN,URINE 100 mg/dl (Neg); UROBILINOGEN,URINE 0.2 E.U/dL (0.2-1.0)
[2020-10-11 15:16] LABS: BASOPHILS # (AUTO) 0.1 X10'3 (0-0.2); BASOPHILS % (AUTO) 0.8 % (0-1); EOSINOPHILS # (AUTO) 0.1 X10'3 (0-0.9); EOSINOPHILS % (AUTO) 0.9 % (0-6); HEMATOCRIT 35.2 % (42.0-52.0); HEMOGLOBIN 11.5 g/dl (14.0-17.9); LYMPHOCYTES # (AUTO) 0.5 X10'3 (1.1-4.8); LYMPHOCYTES % (AUTO) 3.4 % (21-51); MEAN CORPUSCULAR HEMOGLOBIN 30.2 PG (27.0-31.0); MEAN CORPUSCULAR HGB CONC 32.6 g/dL (33.0-36.5); MEAN CORPUSCULAR VOLUME 92.6 FL (78-98); MONOCYTES # (AUTO) 0.7 X10'3 (0-0.9); MONOCYTES % (AUTO) 5.4 % (2-12); NEUTROPHILS # (AUTO) 12.1 X10'3 (1.8-7.7); NEUTROPHILS % (AUTO) 89.5 % (42-75); PLATELET COUNT 231 X10'3 (140-440); RED CELL DISTRIBUTION WIDTH 15.9 % (11.5-14.5); WHITE BLOOD COUNT 13.5 X10'3 (4.5-11.0)
[2020-10-11 15:20] LABS: UA COLLECTION TYPE URINAL
[2020-10-11 15:21] LABS: BACTERIA,URINE 1+ /HPF (Neg); RBC,URINE 20-50 /HPF (0-2); WBC,URINE 50-100 /HPF (0-4)
[2020-10-11 15:22] LABS: HYALINE CASTS 0-3 /LPF (NEGATIVE); MUCUS STRANDS NONE SEEN /LPF (Neg); RENAL CELLS, URINE FEW /HPF; SQUAMOUS EPITHELIAL CELL,UR NONE SEEN /LPF (FEW); WBC CLUMPS,URINE MODERATE /HPF (NEGATIVE)
[2020-10-11] MEDS ORDERED: CefTRIAXone 2gm/D5W 50ml BAG 50 ML IV ONE (15:25)
[2020-10-11 15:29] LABS: URINE AMPHETAMINE SCREEN NEGATIVE (Neg); URINE BARBITUATE SCREEN NEGATIVE (Neg); URINE BENZODIAZEPINES SCREEN NEGATIVE (Neg); URINE CANNABINOID SCREEN NEGATIVE (Neg); URINE COCAINE SCREEN NEGATIVE (Neg); URINE METHADONE SCREEN NEGATIVE (Neg); URINE OPIATE SCREEN NEGATIVE (Neg); URINE PHENCYCLIDINE SCREEN NEGATIVE (Neg)
[2020-10-11 15:30] LABS: ALANINE AMINOTRANSFERASE 11 U/L (12-78); ALBUMIN 3.2 G/DL (3.4-5.0); ALBUMIN/GLOBULIN RATIO 0.7 (1.1-1.5); ALKALINE PHOSPHATASE 87 IU/L (46-116); ANION GAP 9 (8-16); ASPARTATE AMINO TRANSFERASE 16 U/L (10-37); BILIRUBIN,TOTAL 1.5 MG/DL (0.1-1.0); BLOOD UREA NITROGEN 46 MG/DL (7-18); BUN/CREATININE RATIO 21.6 (5.4-32.0); CALCIUM 8.8 MG/DL (8.5-10.1); CHLORIDE 104 MMOL/L (99-107); CREATININE 2.13 MG/DL (0.60-1.10); GLUCOSE 112 MG/DL (70-104); POTASSIUM 5.2 MMOL/L (3.5-5.1); SODIUM 136 MMOL/L (135-145); TOTAL CARBON DIOXIDE 23.3 MMOL/L (24-32); TOTAL PROTEIN 7.6 G/DL (6.4-8.2); eGFR 30 ML/MIN
[2020-10-11 15:34] LABS: ETHANOL < 0.010 GM/DL (0.0-0.010); TROPONIN I < 0.04 NG/ML (0.0-0.05)
[2020-10-11 15:46] LABS: LACTIC SEPSIS 1.2 MMOL/L (0.4-2.0)
[2020-10-11] MEDS ORDERED: CEPH-572 PO (15:54)
[2020-10-11] MEDS ORDERED: furosemide 10 MG/1 ML 10ml inj IV ONE (15:55)
[2020-10-11] MEDS ORDERED: acetaminophen 325mg tablet PO ONE (16:50)
--- NOTE | 2020-10-11 17:09 | NUR ---
Pt in room 15 directly across from CN desk. This scribe looked over to see patient standing to r-adjust his pants and leaned forward, unable to keep his balance fell forward catching his fall on the keyboard attached to the wall. Pt fell to the floor. Dr. Blank notified, pt denies any pain at this time, not trauma noted and patient did not hit his head. Primary RN at bedside to evaluate patient.
--- NOTE | 2020-10-11 17:11 | NUR ---
TC FROM CLOSE FRIEND, JAMAAL ROSE, FOR CONDITION REPORT. JAMAAL CONTACT INFORMATION IS HOME PHONE OR CELL PHONE
[2020-10-11] MEDS ORDERED: LIDOcaine 2% 10ml TOPICAL JELLY (Urojet) TP ONE (17:30)
[2020-10-11] MEDS ORDERED: magnesium hydroxide 30ml (MOM) UD suspension PO PRN (20:50)
[2020-10-11] MEDS ORDERED: ATOR40TA PO (20:50)
[2020-10-11] MEDS ORDERED: PRAV20TA4 PO (20:50)
[2020-10-11] MEDS ORDERED: normal saline 1000ml 1,000 ML IV SCH (20:50)
[2020-10-11] MEDS ORDERED: METO50TA17 PO (20:50)
[2020-10-11] MEDS ORDERED: potassium CL 10mEq/100ml bag 100 ML IV PRN ×2 (20:50)
[2020-10-11] MEDS ORDERED: IRBE150T51 PO (20:50)
[2020-10-11] MEDS ORDERED: acetaminophen 325mg tablet PO PRN (20:50)
[2020-10-11] MEDS ORDERED: NIFE90TA2 PO (20:50)
[2020-10-11] MEDS ORDERED: potassium Cl 20 mEq SR tablet PO PRN ×2 (20:50)
[2020-10-11] MEDS ORDERED: FURO-150 PO (20:50)
[2020-10-11] MEDS ORDERED: WARF-65 PO (20:50)
[2020-10-11] MEDS ORDERED: WARF-55 PO (20:50)
[2020-10-11] MEDS ORDERED: ERGO500041 PO (20:50)
[2020-10-11] MEDS ORDERED: mag hydrox/Alum hydrox/simeth 30ml oral suspension PO PRN (20:50)
[2020-10-11 23:00] VITALS: BP 139/61
[2020-10-12 03:00] VITALS: BP 116/4
[2020-10-12 05:40] LABS: BASOPHILS % (AUTO) 0.2 % (0-1); EOSINOPHILS % (AUTO) 0.2 % (0-6); HEMATOCRIT 31.3 % (42.0-52.0); HEMOGLOBIN 10.3 g/dl (14.0-17.9); LYMPHOCYTES # (AUTO) 0.3 X10'3 (1.1-4.8); LYMPHOCYTES % (AUTO) 2.4 % (21-51); MEAN CORPUSCULAR HEMOGLOBIN 30.7 PG (27.0-31.0); MEAN PLATELET VOLUME 8.2 FL (7.4-10.4); MONOCYTES # (AUTO) 0.6 X10'3 (0-0.9); NEUTROPHILS # (AUTO) 11.3 X10'3 (1.8-7.7); NEUTROPHILS % (AUTO) 92.2 % (42-75); PLATELET COUNT 169 X10'3 (140-440); RED BLOOD COUNT 3.36 X10'6 (4.70-6.10); WHITE BLOOD COUNT 12.2 X10'3 (4.5-11.0)
[2020-10-12 06:01] LABS: ALANINE AMINOTRANSFERASE 12 U/L (12-78); ALBUMIN 2.6 G/DL (3.4-5.0); ALBUMIN/GLOBULIN RATIO 0.6 (1.1-1.5); ALKALINE PHOSPHATASE 74 IU/L (46-116); ANION GAP 13 (8-16); ASPARTATE AMINO TRANSFERASE 16 U/L (10-37); BILIRUBIN,TOTAL 1.1 MG/DL (0.1-1.0); BLOOD UREA NITROGEN 50 MG/DL (7-18); BUN/CREATININE RATIO 22.3 (5.4-32.0); CALCIUM 8.2 MG/DL (8.5-10.1); CHLORIDE 105 MMOL/L (99-107); CREATININE 2.24 MG/DL (0.60-1.10); GLUCOSE 119 MG/DL (70-104); POTASSIUM 5.3 MMOL/L (3.5-5.1); SODIUM 138 MMOL/L (135-145); TOTAL CARBON DIOXIDE 20.2 MMOL/L (24-32); TOTAL PROTEIN 6.7 G/DL (6.4-8.2); eGFR 29 ML/MIN
[2020-10-12 07:00] VITALS: BP 114/62
[2020-10-12] MEDS ORDERED: pravastatin 40mg tablet PO SCH (08:00)
[2020-10-12] MEDS ORDERED: HYDROchlorothiazide 12.5mg capsule PO SCH (08:00)
[2020-10-12] MEDS: K and/or MAG REPLACEMENT MC SCH ×2 (08:00→20:00)
--- NOTE | 2020-10-12 09:04 | NUR ---
DM consult: A1c 6.7%, DM education not indicated at this time as it is less than 7. Will follow up on 10/16 for initial assessment. Addendum: 10/12/20 at [address] Amended: Links added. Addendum: 10/12/20 at [address] ROBERTO CARLOS Medley
[2020-10-12] MEDS ORDERED: pneumococcal 23-VAL P-sac vacc 25 mcg/0.5ml vial IMVAC ONE (10:00)
[2020-10-12] MEDS ORDERED: FLU VACC QS2020-21(6MOS UP)/PF 60 MCG/0.5 ML SYRINGE IMVAC ONE (10:00)
[2020-10-12] MEDS: allopurinol 100mg tablet PO SCH ×2 (10:03→21:29)
[2020-10-12] MEDS: CefTRIAXone/D5W-Rocephin 1gm 50 ML IV SCH (10:03)
[2020-10-12] MEDS: losartan 50mg tablet PO SCH (10:04)
[2020-10-12] MEDS: furosemide 20MG tablet PO SCH (10:04)
[2020-10-12] MEDS: atorvastatin 20mg tablet PO SCH (10:04)
[2020-10-12] MEDS: NIFEdipine XL 30mg tablet PO SCH (10:04)
[2020-10-12] MEDS: gabapentin 300mg capsule PO SCH ×2 (10:04→21:28)
[2020-10-12] MEDS: metoprolol tartrate 50mg tablet PO SCH ×2 (10:05→21:28)
[2020-10-12 11:00] VITALS: BP_SYST 116; BP_SYST 119; BP_DIAS 60; BP_DIAS 80
--- NOTE | 2020-10-12 11:15 | NUR ---
Page sent to Dr. Garcia: PAGER ID: [phone] MESSAGE: [id number] Eliana Azevedo: You ordered a CT with contrast, just FYI the patient's GFR is 29, should we proceed anyway? Please advise. Thanks, Rachel [phone]
[2020-10-12 15:43] VITALS: BP 115/58
[2020-10-12] MEDS ORDERED: sodium polystyrene sulfonate 15gm/60ml oral suspension PO ONE (18:20)
--- NOTE | 2020-10-12 18:23 | NUR ---
[place] documentation: I have reviewed and agree with all interventions, assessments performed and documented by Josie WALKER. [place] Medication Administration: For this medication-pass time frame, all medication were reviewed, dispensed, administered and documented per hospital policy by Josie WALKER.
--- NOTE | 2020-10-12 18:23 | NUR ---
Problems reprioritized. Patient report given, questions answered & plan of care reviewed with Pat RN.
[2020-10-12 19:00] VITALS: BP 118/57
--- NOTE | 2020-10-12 19:00 | NUR ---
pt is obese; pt has bulky drsg to right foot, with arg[place] wrap to lower extremity; states he has had some swelling to his lower leg, as well as to his left stump (states he has noticed this since his prosthesis is feeling a little snug) Addendum: 10/13/20 at 0129 by Trish Booth RN Amended: Links added.
[2020-10-12] MEDS ORDERED: warfarin 5mg tablet PO ONE (21:00)
[2020-10-12] MEDS: lactobacillus rhamnosus 10,000 MMU CELLS/CAPSULE PO SCH (21:30)
[2020-10-12 21:35] LABS: ABG BASE EXCESS -2.7 mmol/L (-2.0-2.0); ABG HCO3 21.4 mmol/L (22.0-26.0); ABG OXYGEN SATURATION 95.8 % (94-97); ABG PCO2 (T) 33.9 mmHg (35.0-48.0); ABG PO2 (T) 80.3 mmHg (75.0-100.0); ALLEN'S TEST POSITIVE; FCOHb 0.3 % (0.0-3.9); FLOW 4 L/min; FMetHb 0.1 % (0.0-1.5); FO2Hb 95.4 % (94-97); PATIENT TEMPERATURE 36.7; TOTAL HEMOGLOBIN 10.8 G/dl (14.0-18.0)
[2020-10-12 23:00] VITALS: BP 132/60
[2020-10-13 03:00] VITALS: BP 139/64
[2020-10-13 06:05] LABS: BASOPHILS % (AUTO) 0.2 % (0-1); EOSINOPHILS # (AUTO) 0.1 X10'3 (0-0.9); EOSINOPHILS % (AUTO) 0.8 % (0-6); HEMATOCRIT 32.7 % (42.0-52.0); HEMOGLOBIN 10.7 g/dl (14.0-17.9); LYMPHOCYTES # (AUTO) 0.3 X10'3 (1.1-4.8); LYMPHOCYTES % (AUTO) 2.8 % (21-51); MEAN CORPUSCULAR HEMOGLOBIN 30.5 PG (27.0-31.0); MEAN CORPUSCULAR HGB CONC 32.7 g/dL (33.0-36.5); MEAN CORPUSCULAR VOLUME 93.1 FL (78-98); MEAN PLATELET VOLUME 8.3 FL (7.4-10.4); MONOCYTES # (AUTO) 0.3 X10'3 (0-0.9); MONOCYTES % (AUTO) 3.8 % (2-12); NEUTROPHILS # (AUTO) 8.2 X10'3 (1.8-7.7); NEUTROPHILS % (AUTO) 92.4 % (42-75); PLATELET COUNT 181 X10'3 (140-440); RED BLOOD COUNT 3.51 X10'6 (4.70-6.10); RED CELL DISTRIBUTION WIDTH 15.9 % (11.5-14.5); WHITE BLOOD COUNT 8.8 X10'3 (4.5-11.0)
[2020-10-13 06:18] LABS: ALANINE AMINOTRANSFERASE 12 U/L (12-78); ALBUMIN 2.6 G/DL (3.4-5.0); ALBUMIN/GLOBULIN RATIO 0.6 (1.1-1.5); ALKALINE PHOSPHATASE 74 IU/L (46-116); ANION GAP 11 (8-16); ASPARTATE AMINO TRANSFERASE 18 U/L (10-37); BILIRUBIN,TOTAL 0.5 MG/DL (0.1-1.0); BLOOD UREA NITROGEN 61 MG/DL (7-18); BUN/CREATININE RATIO 24.9 (5.4-32.0); CALCIUM 8.4 MG/DL (8.5-10.1); CHLORIDE 107 MMOL/L (99-107); CREATININE 2.45 MG/DL (0.60-1.10); GLUCOSE 163 MG/DL (70-104); POTASSIUM 4.6 MMOL/L (3.5-5.1); SODIUM 140 MMOL/L (135-145); TOTAL CARBON DIOXIDE 22.3 MMOL/L (24-32); TOTAL PROTEIN 7.1 G/DL (6.4-8.2); eGFR 26 ML/MIN
--- NOTE | 2020-10-13 06:20 | NUR ---
Patient in room PCU 3027. I have received report from Glenna RN and had the opportunity to ask questions and assume patient care.
[2020-10-13 07:02] VITALS: BP 141/83
[2020-10-13] MEDS: K and/or MAG REPLACEMENT MC SCH ×2 (08:00→20:00)
[2020-10-13] MEDS: CefTRIAXone/D5W-Rocephin 1gm 50 ML IV SCH (08:56)
[2020-10-13] MEDS: ondansetron/PF 4mg/2ml inj IV PRN ×2 (08:56→16:22)
[2020-10-13] MEDS: allopurinol 100mg tablet PO SCH ×2 (08:57→20:12)
[2020-10-13] MEDS: NIFEdipine XL 30mg tablet PO SCH (08:57)
[2020-10-13] MEDS: lactobacillus rhamnosus 10,000 MMU CELLS/CAPSULE PO SCH ×2 (08:59→20:12)
[2020-10-13] MEDS: metoprolol tartrate 50mg tablet PO SCH ×2 (08:59→20:12)
[2020-10-13] MEDS: furosemide 20MG tablet PO SCH (09:00)
[2020-10-13] MEDS: losartan 50mg tablet PO SCH (09:00)
[2020-10-13] MEDS: atorvastatin 20mg tablet PO SCH (09:01)
[2020-10-13] MEDS: gabapentin 300mg capsule PO SCH ×2 (09:01→20:12)
--- NOTE | 2020-10-13 09:52 | NUR ---
Paged Dr. Cheng PAGER ID: [phone] MESSAGE: room 3027B: Eliana Azevedoan was given 50 minutes ago w/o relief. Can we add reglan ROXIN? Thanks Josie [phone]
--- NOTE | 2020-10-13 10:58 | NUR ---
IR team to patient's bedside. Pt consented for left thoracentesis. US obtained by Jack MONTEMAYOR and determined inadequate fluid for puncture. Pt made aware and states understanding. Floor interpretive naturalist informed and verbalized understanding.
[2020-10-13 11:00] VITALS: BP 127/73
[2020-10-13] MEDS ORDERED: metoclopramide 5 mg/ml inj IV PRN (12:15)
[2020-10-13 15:00] VITALS: BP 126/63
[2020-10-13 18:00] VITALS: BP 114/46
--- NOTE | 2020-10-13 18:26 | NUR ---
Problems reprioritized. Patient report given, questions answered & plan of care reviewed with Yumiko WALKER.
[2020-10-13] MEDS ORDERED: warfarin 5mg tablet PO ONE (21:00)
[2020-10-13 22:00] VITALS: BP 132/61
[2020-10-14 02:00] VITALS: BP 126/62
[2020-10-14 05:36] LABS: ALANINE AMINOTRANSFERASE 19 U/L (12-78); ALBUMIN 2.4 G/DL (3.4-5.0); ALBUMIN/GLOBULIN RATIO 0.6 (1.1-1.5); ALKALINE PHOSPHATASE 70 IU/L (46-116); ANION GAP 9 (8-16); ASPARTATE AMINO TRANSFERASE 23 U/L (10-37); BILIRUBIN,TOTAL 0.5 MG/DL (0.1-1.0); BLOOD UREA NITROGEN 61 MG/DL (7-18); BUN/CREATININE RATIO 26.6 (5.4-32.0); CALCIUM 7.5 MG/DL (8.5-10.1); CHLORIDE 108 MMOL/L (99-107); CREATININE 2.29 MG/DL (0.60-1.10); GLUCOSE 118 MG/DL (70-104); POTASSIUM 4.3 MMOL/L (3.5-5.1); SODIUM 141 MMOL/L (135-145); TOTAL CARBON DIOXIDE 23.8 MMOL/L (24-32); TOTAL PROTEIN 6.6 G/DL (6.4-8.2); eGFR 28 ML/MIN
[2020-10-14 05:40] LABS: BASOPHILS % (AUTO) 0.6 % (0-1); EOSINOPHILS # (AUTO) 0.1 X10'3 (0-0.9); EOSINOPHILS % (AUTO) 1.3 % (0-6); HEMOGLOBIN 10.1 g/dl (14.0-17.9); LYMPHOCYTES # (AUTO) 0.3 X10'3 (1.1-4.8); LYMPHOCYTES % (AUTO) 7.6 % (21-51); MEAN CORPUSCULAR HEMOGLOBIN 30.5 PG (27.0-31.0); MEAN CORPUSCULAR HGB CONC 32.7 g/dL (33.0-36.5); MEAN CORPUSCULAR VOLUME 93.3 FL (78-98); MEAN PLATELET VOLUME 8.1 FL (7.4-10.4); MONOCYTES # (AUTO) 0.3 X10'3 (0-0.9); MONOCYTES % (AUTO) 7.4 % (2-12); NEUTROPHILS # (AUTO) 3.4 X10'3 (1.8-7.7); NEUTROPHILS % (AUTO) 83.1 % (42-75); PLATELET COUNT 152 X10'3 (140-440); RED BLOOD COUNT 3.33 X10'6 (4.70-6.10); WHITE BLOOD COUNT 4.1 X10'3 (4.5-11.0)
--- NOTE | 2020-10-14 06:01 | NUR ---
Problems reprioritized. Patient report given, questions answered & plan of care reviewed with AARON Ramos.
--- NOTE | 2020-10-14 06:25 | NUR ---
Patient in room PCU 3027. I have received report from Yumiko WALKER and had the opportunity to ask questions and assume patient care.
[2020-10-14 07:00] VITALS: BP 128/57
[2020-10-14] MEDS: K and/or MAG REPLACEMENT MC SCH ×2 (08:00→20:00)
[2020-10-14] MEDS ORDERED: FLU VACC QS2020-21(6MOS UP)/PF 60 MCG/0.5 ML SYRINGE IMVAC ONE (10:00)
[2020-10-14] MEDS ORDERED: pneumococcal 23-VAL P-sac vacc 25 mcg/0.5ml vial IMVAC ONE (10:00)
[2020-10-14] MEDS: ondansetron/PF 4mg/2ml inj IV PRN (10:06)
[2020-10-14] MEDS: allopurinol 100mg tablet PO SCH ×2 (10:11→20:47)
[2020-10-14] MEDS: CefTRIAXone/D5W-Rocephin 1gm 50 ML IV SCH (10:11)
[2020-10-14] MEDS: lactobacillus rhamnosus 10,000 MMU CELLS/CAPSULE PO SCH ×2 (10:12→20:48)
[2020-10-14] MEDS: losartan 50mg tablet PO SCH (10:12)
[2020-10-14] MEDS: atorvastatin 20mg tablet PO SCH (10:12)
[2020-10-14] MEDS: gabapentin 300mg capsule PO SCH ×2 (10:12→20:47)
[2020-10-14] MEDS: NIFEdipine XL 30mg tablet PO SCH (10:12)
[2020-10-14] MEDS: metoprolol tartrate 50mg tablet PO SCH ×2 (10:12→20:48)
[2020-10-14] MEDS: furosemide 20MG tablet PO SCH (10:13)
--- NOTE | 2020-10-14 14:59 | NUR ---
Initial: Pt admit metabolic encephalopathy secondary to UTI, improving per MD notes. Pt documented as A/O x 3 and confused. Per [facility] notes pt with DM/venous ulcers to right lower leg. Pt on a CHO controlled diet documented with mostly 100% PO intake throughout LOS with the exception of 0% PO intake at lunch 10/13. D/w dietary to send double protein TID for satiety. LBM 10/13. No nutrition diagnosis at this time. Will continue to follow. Recommendations: 1) Continue CHO controlled diet 2) Double eggs q breakfast, double meat BIDLD 3) Bowel care per rx 4) Scaled weights per rx Addendum: 10/14/20 at [address] Amended: Links added.
[2020-10-14 15:00] VITALS: BP 141/56
[2020-10-14 18:00] VITALS: BP 119/49
--- NOTE | 2020-10-14 18:29 | NUR ---
Problems reprioritized. Patient report given, questions answered & plan of care reviewed with Yuliana WALKER.
[2020-10-14] MEDS ORDERED: warfarin 2.5mg tablet PO ONE (21:00)
[2020-10-14 22:00] VITALS: BP 107/49
[2020-10-15 02:14] VITALS: BP 125/61
[2020-10-15 05:56] LABS: EOSINOPHILS # (AUTO) 0.1 X10'3 (0-0.9); EOSINOPHILS % (AUTO) 4.5 % (0-6); HEMATOCRIT 32.7 % (42.0-52.0); HEMOGLOBIN 10.7 g/dl (14.0-17.9); LYMPHOCYTES # (AUTO) 0.4 X10'3 (1.1-4.8); LYMPHOCYTES % (AUTO) 13.4 % (21-51); MEAN CORPUSCULAR HEMOGLOBIN 30.6 PG (27.0-31.0); MEAN CORPUSCULAR HGB CONC 32.7 g/dL (33.0-36.5); MEAN CORPUSCULAR VOLUME 93.5 FL (78-98); MEAN PLATELET VOLUME 8.3 FL (7.4-10.4); MONOCYTES # (AUTO) 0.4 X10'3 (0-0.9); MONOCYTES % (AUTO) 11.7 % (2-12); NEUTROPHILS # (AUTO) 2.2 X10'3 (1.8-7.7); NEUTROPHILS % (AUTO) 69.4 % (42-75); PLATELET COUNT 170 X10'3 (140-440); RED CELL DISTRIBUTION WIDTH 15.8 % (11.5-14.5); WHITE BLOOD COUNT 3.1 X10'3 (4.5-11.0)
[2020-10-15 06:12] LABS: ALANINE AMINOTRANSFERASE 22 U/L (12-78); ALBUMIN 2.4 G/DL (3.4-5.0); ALBUMIN/GLOBULIN RATIO 0.6 (1.1-1.5); ALKALINE PHOSPHATASE 70 IU/L (46-116); ANION GAP 9 (8-16); ASPARTATE AMINO TRANSFERASE 31 U/L (10-37); BILIRUBIN,TOTAL 0.4 MG/DL (0.1-1.0); BLOOD UREA NITROGEN 59 MG/DL (7-18); BUN/CREATININE RATIO 28.4 (5.4-32.0); CALCIUM 7.9 MG/DL (8.5-10.1); CHLORIDE 108 MMOL/L (99-107); CREATININE 2.08 MG/DL (0.60-1.10); GLUCOSE 112 MG/DL (70-104); POTASSIUM 4.5 MMOL/L (3.5-5.1); SODIUM 143 MMOL/L (135-145); TOTAL CARBON DIOXIDE 26.1 MMOL/L (24-32); TOTAL PROTEIN 6.5 G/DL (6.4-8.2); eGFR 31 ML/MIN
--- NOTE | 2020-10-15 06:25 | NUR ---
Patient in room PCU 3027. I have received report from AARON Bridges and had the opportunity to ask questions and assume patient care. Pt sleeping comfortably at change of shift.
[2020-10-15 07:00] VITALS: BP 100/51
[2020-10-15] MEDS: CefTRIAXone/D5W-Rocephin 1gm 50 ML IV SCH (07:37)
[2020-10-15] MEDS: allopurinol 100mg tablet PO SCH (07:38)
[2020-10-15] MEDS: lactobacillus rhamnosus 10,000 MMU CELLS/CAPSULE PO SCH (07:38)
[2020-10-15] MEDS: atorvastatin 20mg tablet PO SCH (07:38)
[2020-10-15] MEDS: gabapentin 300mg capsule PO SCH (07:38)
[2020-10-15] MEDS: furosemide 20MG tablet PO SCH (07:39)
[2020-10-15 07:43] VITALS: BP_SYST 137
[2020-10-15] MEDS: metoprolol tartrate 50mg tablet PO SCH (07:43)
[2020-10-15] MEDS: losartan 50mg tablet PO SCH (07:43)
[2020-10-15] MEDS: NIFEdipine XL 30mg tablet PO SCH (07:43)
[2020-10-15] MEDS: ondansetron/PF 4mg/2ml inj IV PRN (07:48)
--- NOTE | 2020-10-15 07:55 | NUR ---
Paged Dr Cheng MESSAGE: Re Eliana Azevedo Rm [phone] Do you want the [facility] left in for [place] transfer? Thanks Debbie Mcdonald [phone]
--- NOTE | 2020-10-15 09:07 | NUR ---
Patient stable for transfer to [facility]. Called report to AARON Kelley at [facility]. Pt going with IV for continued IV ABX. Removed Verna, pt voiding okay with no problems. Picked up by [employer] [employer].
[2020-10-15] MEDS ORDERED: FLU VACC QS2020-21(6MOS UP)/PF 60 MCG/0.5 ML SYRINGE IMVAC ONE (10:00)
[2020-10-15] MEDS ORDERED: pneumococcal 23-VAL P-sac vacc 25 mcg/0.5ml vial IMVAC ONE (10:00)
== END 2020-10-15 09:45 | DRG 689 ==
LOC: ER 14:08 → ED HOLD 20:48 → PCU 3S 21:45
PROVIDERS: ADMIT Internal Medicine; ATTEND Internal Medicine
PROC: 3E0234Z Introduction of Serum, Toxoid and Vaccine into Muscle, Percutaneous Approach (ICD-10-PCS; principal; 2020-10-15)
PROC: 3E02340 Introduction of Influenza Vaccine into Muscle, Percutaneous Approach (ICD-10-PCS; 2020-10-15)
DX: N39.0 Urinary tract infection, site not specified (principal); G93.41 Metabolic encephalopathy; Z68.42 Body mass index [BMI] 45.0-49.9, adult; Z16.39 Resistance to other specified antimicrobial drug; B96.20 Unspecified Escherichia coli [E. coli] as the cause of diseases classified elsewhere; E87.5 Hyperkalemia; I50.9 Heart failure, unspecified; E11.22 Type 2 diabetes mellitus with diabetic chronic kidney disease; E11.621 Type 2 diabetes mellitus with foot ulcer; Z60.2 Problems related to living alone; Z20.828 Contact with and (suspected) exposure to other viral communicable diseases; E11.40 Type 2 diabetes mellitus with diabetic neuropathy, unspecified; S81.801A Unspecified open wound, right lower leg, initial encounter; X58.XXXA Exposure to other specified factors, initial encounter; E11.51 Type 2 diabetes mellitus with diabetic peripheral angiopathy without gangrene; E66.01 Morbid (severe) obesity due to excess calories; D64.9 Anemia, unspecified; L97.509 Non-pressure chronic ulcer of other part of unspecified foot with unspecified severity; N18.9 Chronic kidney disease, unspecified; Z23 Encounter for immunization; Z86.718 Personal history of other venous thrombosis and embolism; Z89.512 Acquired absence of left leg below knee; Z95.1 Presence of aortocoronary bypass graft; Z88.2 Allergy status to sulfonamides; Z79.899 Other long term (current) drug therapy; Z80.9 Family history of malignant neoplasm, unspecified; Y93.89 Activity, other specified; Y92.89 Other specified places as the place of occurrence of the external cause; Y99.8 Other external cause status
CPT/HCPCS: 36415; 36600; 70450; 71045; 71250; 74176; 76604; 76937; 80053; 80305; 80320; 81001; 82140; 82803; 82948; 83036; 83605; 83880; 84484; 85018; 85025; 85610; 87040; 87077; 87081; 87088; 87186; 87635; 93005; 96365; 96375; 97116; 97161; 97530; 99285; C9803; G0378; J0696; J1940; J2405; J2765